=== PATIENT | female | born 1985 | race Two or more races ===

== ENCOUNTER 2022-01-08 20:12 | Emergency (ER) | payer SELFPAY ==
[~2022-01-08] VITALS: Ht 167.6 cm; Wt 106.6 kg
[2022-01-09] MEDS ORDERED: IBUPROFEN 600 MG TAB PO ONE (00:45)
[2022-01-09 03:43] VITALS: BP 140/78
[2022-01-09] MEDS ORDERED: AMOX500T3 PO (04:13)
== END 2022-01-09 04:31 | disposition home or self-care (01) ==
LOC: ER 20:19
DX: H66.91 Otitis media, unspecified, right ear (principal)